=== PATIENT | female | born 1940 | race Caucasian/White ===

== ENCOUNTER 2025-01-11 05:17 | Emergency (ER) | payer MEDICARE ==
[2025-01-11] MEDS ORDERED: VALA500T5 PO (05:47)
[2025-01-11] MEDS ORDERED: DARA100V IV (05:47)
[2025-01-11] MEDS ORDERED: LENA25CA PO (05:47)
[2025-01-11] MEDS ORDERED: ALPR0.25 PO (05:47)
[2025-01-11] MEDS ORDERED: COLA100C5 PO (08:22)
[2025-01-11 10:46] VITALS: BP 137/68; TEMP 97.1; O2SAT 100
== END 2025-01-11 08:32 | disposition home or self-care (01) ==
LOC: M ED 05:17 → EDBD 05:17 → M ED 08:32
DX: K59.00 Constipation, unspecified (principal); J45.909 Unspecified asthma, uncomplicated; K40.20 Bilateral inguinal hernia, without obstruction or gangrene, not specified as recurrent; Z88.2 Allergy status to sulfonamides; Z79.899 Other long term (current) drug therapy

== ENCOUNTER 2025-01-31 13:42 | Emergency (ER) | payer MEDICARE ==
[~2025-01-31] VITALS: Ht 157.5 cm; Wt 71.8 kg
[~2025-01-31 13:42] MED LIST: ALPR0.25 PO; COLA100C5 PO; DARA100V IV; LENA25CA PO; VALA500T5 PO
[2025-01-31] MEDS ORDERED: ELIQ5TAB (13:57)
[2025-01-31] MEDS ORDERED: FURO20TA2 (13:57)
[2025-01-31] MEDS ORDERED: FLUT1BLS8 (13:57)
[2025-01-31] MEDS ORDERED: OMEP-173 (13:57)
[2025-01-31] MEDS ORDERED: GABA-1490 (13:57)
[2025-01-31] MEDS ORDERED: ATOR1TAB21 (13:57)
[2025-01-31] MEDS ORDERED: LENA20CA (13:57)
[2025-01-31] MEDS ORDERED: DILT180C95 (13:57)
[2025-01-31] MEDS ORDERED: ALEN70TA82 (13:57)
[2025-01-31 14:28] LABS: BASO % 0.3 % (0.0-1.0); EOS # 0.1 10^3/uL (0.0-0.5); EOS % 2.5 % (0.0-3.0); HEMOGLOBIN 12.3 g/dl (12.0-15.5); LYMPH # 0.7 10^3/uL (1.5-5.0); LYMPH % 20.9 % (24.0-44.0); MEAN CORPUSCULAR HEMOGLOBIN 32.9 pg (27.0-33.0); MEAN CORPUSCULAR HGB CONC 32.4 g/dl (32.0-36.5); MEAN CORPUSCULAR VOLUME 101.6 fl (80.0-96.0); MONO # 0.4 10^3/uL (0.0-0.8); MONO % 11.8 % (2.0-8.0); NEUTROPHILS # 2.1 10^3/uL (1.5-8.5); NEUTROPHILS % 63.9 % (36.0-66.0); PLATELET COUNT, AUTOMATED 233 10^3/uL (150-450); RED BLOOD COUNT 3.74 10^6/uL (4.00-5.40); WHITE BLOOD COUNT 3.2 10^3/uL (4.0-10.0)
[2025-01-31 14:48] LABS: INR 1.26; PROTHROMBIN TIME 16.1 SECONDS (12.5-14.5)
[2025-01-31 15:03] LABS: LIPASE 19 U/L (12-53)
[2025-01-31 15:06] LABS: ALBUMIN 3.1 G/DL (3.2-5.2); ALKALINE PHOSPHATASE 95 U/L (35-104); ALT/SGPT 24 U/L (7.0-40); AST/SGOT 28 U/L (<34); BILIRUBIN,DIRECT 0.1 MG/DL (<0.4); BILIRUBIN,TOTAL 0.5 MG/DL (0.3-1.2); BLOOD UREA NITROGEN 10 MG/DL (9-23); CALCIUM LEVEL 8.5 MG/DL (8.3-10.6); CARBON DIOXIDE LEVEL 34 MMOL/L (20-31); CHLORIDE LEVEL 102 MMOL/L (98-107); CK-MB VALUE MASS 5.2 NG/ML (<3.6); CREATININE FOR GFR 0.68 MG/DL (0.55-1.30); FREE T4 1.11 NG/DL (0.89-1.76); GLOMERULAR FILTRATION RATE > 60.0 (>32); GLUCOSE, FASTING 94 MG/DL (74-106); POTASSIUM SERUM 3.3 MMOL/L (3.5-5.1); SODIUM LEVEL 141 MMOL/L (136-145); THYROID STIMULATING HORMONE 1.594 uIU/ML (0.55-4.78)
[2025-01-31 15:09] LABS: CPK CREATINE PHOSPHOKINASE 95 U/L (34-145); MB/CK RELATIVE INDEX 5.47 (< OR =4)
[2025-01-31] MEDS: ACETAMINOPHEN 325 MG TAB PO ONE (15:29)
[2025-01-31 15:51] LABS: CK-MB VALUE MASS 6.3 NG/ML (<3.6)
[2025-01-31 16:09] LABS: MB/CK RELATIVE INDEX 6.63 (< OR =4)
[2025-01-31] MEDS: METOCLOPRAMIDE INJ 10MG/2ML VIAL IV ONE (16:50)
[2025-01-31 17:15] VITALS: BP 110/55; TEMP 98; O2SAT 98
== END 2025-01-31 17:45 | disposition home or self-care (01) ==
LOC: M ED 13:42
DX: R07.9 Chest pain, unspecified (principal); R51.9 Headache, unspecified; I10 Essential (primary) hypertension; Z88.2 Allergy status to sulfonamides; Z95.0 Presence of cardiac pacemaker; Z79.899 Other long term (current) drug therapy; Z79.01 Long term (current) use of anticoagulants; Z79.02 Long term (current) use of antithrombotics/antiplatelets

== ENCOUNTER 2025-03-02 08:45 | Emergency (ER) | payer MEDICARE ==
[~2025-03-02] VITALS: Ht 160 cm; Wt 68.4 kg
[~2025-03-02 08:45] MED LIST changes: +ALBU1.25 NEB; +ALEN70TA82; +ALPH600C PO; +ATOR1TAB21; +B-122500 PO; +CALC500C16 PO; +DEXA4TA PO; +DILT180C95; +ELIQ5TAB; +FLUT1BLS8; +FURO20TA2; +GABA-1490; +LENA20CA; +LISI10TA24; +OMEP-173; +PRES10CA2 PO; +PROBCAP14 PO; +REVL20CA PO; +THIA50TA4 PO
[2025-03-02 10:38] LABS: BASO % 0.2 % (0.0-1.0); EOS # 0.2 10^3/uL (0.0-0.5); EOS % 2.8 % (0.0-3.0); HEMATOCRIT 31.3 % (36.0-47.0); HEMOGLOBIN 10.3 g/dl (12.0-15.5); LYMPH # 0.5 10^3/uL (1.5-5.0); LYMPH % 9.3 % (24.0-44.0); MEAN CORPUSCULAR HEMOGLOBIN 34.1 pg (27.0-33.0); MEAN CORPUSCULAR HGB CONC 32.9 g/dl (32.0-36.5); MEAN CORPUSCULAR VOLUME 103.6 fl (80.0-96.0); MONO # 0.6 10^3/uL (0.0-0.8); MONO % 9.5 % (2.0-8.0); NEUTROPHILS # 4.5 10^3/uL (1.5-8.5); NEUTROPHILS % 77.3 % (36.0-66.0); PLATELET COUNT, AUTOMATED 150 10^3/uL (150-450); RED BLOOD COUNT 3.02 10^6/uL (4.00-5.40); WHITE BLOOD COUNT 5.8 10^3/uL (4.0-10.0)
[2025-03-02 10:43] LABS: ERYTHROCYTE SEDIMENTATION RATE 40 mm/hr (0-30)
[2025-03-02 11:02] LABS: C REACTIVE PROTEIN QUANTITATIV 7.88 MG/DL (<1.0)
[2025-03-02 11:03] LABS: CALCIUM LEVEL 7.5 MG/DL (8.3-10.6); CREATININE FOR GFR 0.64 MG/DL (0.55-1.30); GLOMERULAR FILTRATION RATE 88.2 (>32); POTASSIUM SERUM 3.5 MMOL/L (3.5-5.1)
[2025-03-02] MEDS ORDERED: CLOP75TA99 PO (12:22)
[2025-03-02] MEDS ORDERED: OXYC1TAB23 PO (12:22)
[2025-03-02] MEDS ORDERED: CLIN-250 PO (12:56)
[2025-03-02 13:00] VITALS: BP 107/55; TEMP 98.8; O2SAT 99
== END 2025-03-02 13:09 | disposition home or self-care (01) ==
LOC: M ED 08:45
DX: L03.116 Cellulitis of left lower limb (principal); I10 Essential (primary) hypertension; E78.5 Hyperlipidemia, unspecified; J44.9 Chronic obstructive pulmonary disease, unspecified; Z95.0 Presence of cardiac pacemaker; Z79.01 Long term (current) use of anticoagulants; Z88.2 Allergy status to sulfonamides; Z79.52 Long term (current) use of systemic steroids; Z79.02 Long term (current) use of antithrombotics/antiplatelets; Z79.2 Long term (current) use of antibiotics; Z79.899 Other long term (current) drug therapy

== ENCOUNTER → 2025-05-05 | Outpatient (CLI) | payer MEDICARE ==
[~2025-05-05] MED LIST changes: -ALPH600C PO; +ALPH600C2 PO; +CLIN-250 PO; +CLOP75TA99 PO; +OXYC1TAB23 PO; +REVL15CA PO
== END ==
LOC: M PLARAD 09:55
PROVIDERS: ATTEND Specialist
DX: C90.20 Extramedullary plasmacytoma not having achieved remission (principal)
CPT/HCPCS: 78815; A9552

== ENCOUNTER 2025-05-19 07:23 | Emergency (ER) | payer MEDICARE ==
[~2025-05-19] VITALS: Ht 160 cm; Wt 68.0 kg
[2025-05-19] MEDS: PERCOCET 5MG/325MG TAB PO ONE (08:13)
[2025-05-19 10:45] VITALS: O2SAT 99
[2025-05-19 10:46] VITALS: BP 107/57; TEMP 97.1
[2025-05-19] MEDS ORDERED: MEDR4PAK PO (10:48)
[2025-05-19] MEDS: OXYCODONE/APAP 5MG/325MG(HOME DOSE PACK) PO ONE (11:13)
== END 2025-05-19 11:18 | disposition home or self-care (01) ==
LOC: M ED 07:23
DX: M25.541 Pain in joints of right hand (principal); M25.542 Pain in joints of left hand; Z88.2 Allergy status to sulfonamides; Z79.899 Other long term (current) drug therapy; Z79.891 Long term (current) use of opiate analgesic; Z79.01 Long term (current) use of anticoagulants

== ENCOUNTER → 2025-05-23 | Outpatient (CLI) | payer MEDICARE ==
[~2025-05-23] MED LIST changes: +MEDR4PAK PO
== END ==
LOC: M RAD 13:10
PROVIDERS: ATTEND Internal Medicine Hematology & Oncology
DX: C90.30 Solitary plasmacytoma not having achieved remission (principal); M79.89 Other specified soft tissue disorders

== ENCOUNTER 2025-07-31 06:49 | Emergency (ER) | payer MEDICARE ==
[~2025-07-31] VITALS: Ht 165.1 cm; Wt 69.3 kg
[~2025-07-31 06:49] MED LIST changes: +ELIQ5TAB PO; +ONDA-282 PO
[2025-07-31 07:37] LABS: VENOUS BASE EXCESS 4.3 (-2.0-2.0); VENOUS HCO3 31.3 MMOL/L (23.0-27.0); VENOUS O2 SATURATION 50.6 % (60.0-80.0); VENOUS PARTIAL PRESSURE CO2 57.8 mmHg (38.0-50.0); VENOUS PARTIAL PRESSURE O2 30.3 mmHg (30.0-50.0); VENOUS PH 7.351 UNITS (7.330-7.430); VENOUS STANDARD HCO3 27.2 MMOL/L; VENOUS TOTAL CO2 33.0 MMOL/L (24.0-28.0)
[2025-07-31 07:44] LABS: BASO # 0.0 10^3/uL (0.0-0.2); BASO % 0.0 % (0.0-1.0); EOS # 0.1 10^3/uL (0.0-0.5); EOS % 3.4 % (0.0-3.0); LYMPH # 0.5 10^3/uL (1.5-5.0); LYMPH % 18.0 % (24.0-44.0); MONO # 0.7 10^3/uL (0.0-0.8); MONO % 26.3 % (2.0-8.0); NEUTROPHILS # 1.4 10^3/uL (1.5-8.5); NEUTROPHILS % 51.9 % (36.0-66.0); PLATELET COUNT, AUTOMATED 226 10^3/uL (150-450)
[2025-07-31 08:08] LABS: CK-MB VALUE MASS 2.2 NG/ML (<3.6)
[2025-07-31 08:09] LABS: CPK CREATINE PHOSPHOKINASE 38.0 U/L (34-145); MB/CK RELATIVE INDEX 5.78 (< OR =4)
[2025-07-31 08:10] LABS: ALT/SGPT 26.0 U/L (7.0-40); AST/SGOT 18.0 U/L (<34); CALCIUM LEVEL 8.8 MG/DL (8.3-10.6); CARBON DIOXIDE LEVEL 31.0 MMOL/L (20-31); CHLORIDE LEVEL 102.0 MMOL/L (98-107); CREATININE FOR GFR 0.63 MG/DL (0.55-1.30); GLOMERULAR FILTRATION RATE 88.5 (>32); POTASSIUM SERUM 3.7 MMOL/L (3.5-5.1); SODIUM LEVEL 134.0 MMOL/L (136-145)
[2025-07-31 08:16] LABS: INR 1.01
[2025-07-31] MEDS: IPRATROPIUM 0.5 MG/ALBUTEROL 2.5 MG INH SOL UD 3 ML NEB ONE (08:50)
[2025-07-31 09:10] VITALS: BP 145/65
[2025-07-31 09:12] LABS: CK-MB VALUE MASS 3.4 NG/ML (<3.6); CPK CREATINE PHOSPHOKINASE 36.0 U/L (34-145); MB/CK RELATIVE INDEX 9.44 (< OR =4)
[2025-07-31 09:38] VITALS: O2SAT 98
[2025-07-31 10:10] VITALS: O2SAT 100
[2025-07-31 10:24] VITALS: BP 145/65
[2025-07-31 10:38] VITALS: TEMP 98
== END 2025-07-31 10:39 | disposition home or self-care (01) ==
LOC: M ED 06:49 → EDBD 06:49 → M ED 10:39
DX: R06.02 Shortness of breath (principal); R03.0 Elevated blood-pressure reading, without diagnosis of hypertension; J44.9 Chronic obstructive pulmonary disease, unspecified; E78.5 Hyperlipidemia, unspecified; Z86.711 Personal history of pulmonary embolism; Z95.0 Presence of cardiac pacemaker; Z88.2 Allergy status to sulfonamides; Z79.52 Long term (current) use of systemic steroids; Z79.01 Long term (current) use of anticoagulants; Z79.02 Long term (current) use of antithrombotics/antiplatelets; Z79.899 Other long term (current) drug therapy

== ENCOUNTER 2025-10-05 11:42 | Inpatient (IN) | payer MEDICARE ==
[~2025-10-05] VITALS: Ht 157.5 cm; Wt 63.7 kg
[~2025-10-05 11:42] MED LIST changes: -ALEN70TA82; +ALEN70TA82 PO; -ATOR1TAB21; +ATOR1TAB21 PO; +CEFU1TAB22 PO; +DARA100V SC; -DILT180C95; +DILT180C95 PO; -FLUT1BLS8; +FLUT1BLS8 INH; +FURO20TA2 PO; -GABA-1490; +GABA-1490 PO; -LISI10TA24; +LISI10TA24 PO; -OMEP-173; +OMEP-173 PO
[2025-10-05 12:28] LABS: BASO # 0.0 10^3/uL (0.0-0.2); BASO % 0.0 % (0.0-1.0); EOS # 0.0 10^3/uL (0.0-0.5); EOS % 0.0 % (0.0-3.0); LYMPH # 0.3 10^3/uL (1.5-5.0); LYMPH % 6.0 % (24.0-44.0); MONO # 1.0 10^3/uL (0.0-0.8); MONO % 19.0 % (2.0-8.0); NEUTROPHILS # 3.7 10^3/uL (1.5-8.5); NEUTROPHILS % 73.0 % (36.0-66.0); PLATELET COUNT, AUTOMATED 224 10^3/uL (150-450)
[2025-10-05] MEDS: ACETAMINOPHEN 325 MG TAB PO ONE (12:39)
[2025-10-05] MEDS: ALBUTEROL SULFATE 2.5 MG/0.5 ML INH CONCENTRATE NEB SOLN INH PRN (12:42)
[2025-10-05 12:56] LABS: ALT/SGPT 25.0 U/L (7.0-40); AST/SGOT 23.0 U/L (<34); CALCIUM LEVEL 8.8 MG/DL (8.3-10.6); CARBON DIOXIDE LEVEL 36.0 MMOL/L (20-31); CHLORIDE LEVEL 93.0 MMOL/L (98-107); CREATININE FOR GFR 0.65 MG/DL (0.55-1.30); GLOMERULAR FILTRATION RATE 87.3 (>32); POTASSIUM SERUM 3.3 MMOL/L (3.5-5.1); SODIUM LEVEL 137.0 MMOL/L (136-145)
[2025-10-05 12:59] LABS: THYROXINE (T4) 7.6 UG/DL (4.5-10.9)
[2025-10-05 13:21] LABS: MAGNESIUM LEVEL 1.7 MG/DL (1.8-2.4)
[2025-10-05] MEDS: NS 500 ML IV ONE (15:33)
[2025-10-05] MEDS: MAG SULF 1GM/100ML (MAG RUN) 1 GM in IV 1 EA IV ONE (15:33)
[2025-10-05] MEDS: POTASSIUM CHLORIDE 10MEQ SR TABLET PO ONE (15:34)
[2025-10-05] MEDS: cefTRIAXone SOD 2 GM in DEXTROSE 5% (D5W) ADV/MINI-BAG 50 ML IV SCH (17:48)
[2025-10-05] MEDS: COMBIVENT RESPIMAT 100-20 MCG INHALER 4 GM INH SCH (18:03)
[2025-10-05] MEDS ORDERED: ELIQ5TAB PO (20:41)
[2025-10-05] MEDS ORDERED: GABA-1490 PO (20:56)
[2025-10-05] MEDS ORDERED: PRED10TA2 PO (20:56)
[2025-10-05] MEDS ORDERED: DELS30LI8 PO (20:58)
[2025-10-05] MEDS ORDERED: SENN1TAB85 PO (20:58)
[2025-10-05] MEDS ORDERED: HOME MED LIST COMPLETE! XX SCH (21:00)
[2025-10-05] MEDS: AZITHROMYCIN 250 MG TABLET PO SCH (21:04)
[2025-10-05] MEDS: DOCUSATE SODIUM 100 MG CAPSULE PO SCH (21:04)
[2025-10-05] MEDS: APIXABAN 5 MG TAB PO SCH (21:28)
[2025-10-05] MEDS: PANTOPRAZOLE 40MG TAB PO SCH (21:28)
[2025-10-05] MEDS ORDERED: SENNOSIDES/DOCUSATE SODIUM 8.6 MG/50MG TAB PO PRN (21:30)
[2025-10-05] MEDS ORDERED: guaiFENesin DM LIQ 10ML UD PO PRN (22:15)
[2025-10-05] MEDS: ATORVASTATIN 20 MG TAB PO SCH (22:33)
[2025-10-05] MEDS: GABAPENTIN 300 MG CAP PO SCH (22:33)
[2025-10-06] MEDS ORDERED: HYDR-161 PO (02:23)
[2025-10-06 07:19] LABS: BASO # 0.0 10^3/uL (0.0-0.2); BASO % 0.3 % (0.0-1.0); EOS # 0.0 10^3/uL (0.0-0.5); EOS % 0.3 % (0.0-3.0); LYMPH # 0.3 10^3/uL (1.5-5.0); LYMPH % 8.7 % (24.0-44.0); MONO # 0.6 10^3/uL (0.0-0.8); MONO % 16.9 % (2.0-8.0); NEUTROPHILS # 2.5 10^3/uL (1.5-8.5); NEUTROPHILS % 72.9 % (36.0-66.0); PLATELET COUNT, AUTOMATED 211 10^3/uL (150-450)
[2025-10-06] MEDS: ADVAIR HFA 230/21 MCG INHALER INH SCH (07:30)
[2025-10-06 07:43] LABS: CALCIUM LEVEL 8.1 MG/DL (8.3-10.6); CARBON DIOXIDE LEVEL 38.0 MMOL/L (20-31); CHLORIDE LEVEL 96.0 MMOL/L (98-107); CREATININE FOR GFR 0.67 MG/DL (0.55-1.30); GLOMERULAR FILTRATION RATE 86.7 (>32); POTASSIUM SERUM 3.3 MMOL/L (3.5-5.1); SODIUM LEVEL 142.0 MMOL/L (136-145)
[2025-10-06] MEDS: CYANOCOBALAMIN 500 MCG TAB PO SCH (08:22)
[2025-10-06] MEDS: dilTIAZem 180 MG **CD** CAPSULE PO SCH (08:25)
[2025-10-06] MEDS: GABAPENTIN 300 MG CAP PO SCH (08:25)
[2025-10-06] MEDS: OMEPRAZOLE 20MG CAP PO SCH (08:26)
[2025-10-06] MEDS: CALCIUM CARBONATE 500 MG CHEW U/D PO SCH (08:26)
[2025-10-06] MEDS: predniSONE 10 MG TAB PO SCH (08:26)
[2025-10-06] MEDS: MULTIVITAMINS/MINERALS THERAP 1 TAB PO SCH (11:57)
[2025-10-06 15:40] VITALS: BP 114/56; TEMP 98.7; O2SAT 95
[2025-10-06] MEDS: POTASSIUM CHLORIDE 10MEQ SR TABLET PO ONE (16:17)
[2025-10-06 20:00] VITALS: BP 111/56; TEMP 99.6; O2SAT 95
[2025-10-06] MEDS: DEXTROMETHORPHAN 60 MG/10 ML SUSP 90 ML BTL PO PRN (21:52)
[2025-10-07 05:16] VITALS: BP 119/58; TEMP 102.7; O2SAT 94
[2025-10-07] MEDS: ACETAMINOPHEN 325 MG TAB PO PRN (05:39)
[2025-10-07 07:35] LABS: BASO # 0.0 10^3/uL (0.0-0.2); BASO % 0.0 % (0.0-1.0); EOS # 0.0 10^3/uL (0.0-0.5); EOS % 0.0 % (0.0-3.0); LYMPH # 0.3 10^3/uL (1.5-5.0); LYMPH % 8.1 % (24.0-44.0); MONO # 0.5 10^3/uL (0.0-0.8); MONO % 12.9 % (2.0-8.0); NEUTROPHILS # 2.8 10^3/uL (1.5-8.5); NEUTROPHILS % 77.9 % (36.0-66.0); PLATELET COUNT, AUTOMATED 215 10^3/uL (150-450)
[2025-10-07 08:11] LABS: CALCIUM LEVEL 8.0 MG/DL (8.3-10.6); CARBON DIOXIDE LEVEL 34.0 MMOL/L (20-31); CHLORIDE LEVEL 97.0 MMOL/L (98-107); CREATININE FOR GFR 0.66 MG/DL (0.55-1.30); GLOMERULAR FILTRATION RATE 87.0 (>32); POTASSIUM SERUM 4.1 MMOL/L (3.5-5.1); SODIUM LEVEL 138.0 MMOL/L (136-145)
[2025-10-07 12:15] VITALS: BP 111/52; TEMP 100.1; O2SAT 89
[2025-10-07 16:19] VITALS: TEMP 100
[2025-10-07 19:56] VITALS: BP 113/58; TEMP 98; O2SAT 95
[2025-10-07 20:31] VITALS: O2SAT 90
[2025-10-08] VITALS (14 sets, daily range): BP systolic 106–148; BP diastolic 53–67; TEMP 98–101; O2SAT 82–96
[2025-10-08 06:41] LABS: PLATELET COUNT, AUTOMATED 223 10^3/uL (150-450)
[2025-10-08 07:13] LABS: CALCIUM LEVEL 8.0 MG/DL (8.3-10.6); CARBON DIOXIDE LEVEL 36.0 MMOL/L (20-31); CHLORIDE LEVEL 101.0 MMOL/L (98-107); CREATININE FOR GFR 0.6 MG/DL (0.55-1.30); GLOMERULAR FILTRATION RATE 89.0 (>32); POTASSIUM SERUM 4.7 MMOL/L (3.5-5.1); SODIUM LEVEL 142.0 MMOL/L (136-145)
[2025-10-08 08:00] LABS: LYMPHOCYTES 13 % (16-44); MONOCYTES 6 % (0-5); NEUTROPHILS 79 % (28-66)
[2025-10-08 08:03] LABS: PLATELET ESTIMATE NORMAL (NORMAL)
[2025-10-08] MEDS: cefTRIAXone SOD 1 GM in DEXTROSE 5% (D5W) ADV/MINI-BAG 50 ML IV SCH (17:39)
[2025-10-08] MEDS: REMDESIVIR 200 MG in NS 250 ML IV ONE (20:03)
[2025-10-09] VITALS (19 sets, daily range): BP systolic 96–152; BP diastolic 51–85; TEMP 97.2–100.1; O2SAT 86–96
[2025-10-09] MEDS: FUROSEMIDE 40 MG/4 ML VIAL IV ONE ×2 (08:28→12:47)
[2025-10-09 09:32] LABS: BASO # 0.0 10^3/uL (0.0-0.2); BASO % 0.2 % (0.0-1.0); EOS # 0.0 10^3/uL (0.0-0.5); EOS % 0.3 % (0.0-3.0); LYMPH # 0.5 10^3/uL (1.5-5.0); LYMPH % 7.5 % (24.0-44.0); MONO # 0.2 10^3/uL (0.0-0.8); MONO % 3.8 % (2.0-8.0); NEUTROPHILS # 5.5 10^3/uL (1.5-8.5); NEUTROPHILS % 87.2 % (36.0-66.0); PLATELET COUNT, AUTOMATED 275 10^3/uL (150-450)
[2025-10-09 10:01] LABS: ABG BASE EXCESS 9.2 (-2.0-2.0); ABG HCO3 32.6 MMOL/L (22.0-26.0); ABG O2 SATURATION 94.5 % (95.0-99.0); ABG PARTIAL PRESSURE CO2 39.5 mmHg (35.0-45.0); ABG PARTIAL PRESSURE O2 68.8 mmHg (75.0-100.0); ABG STANDARD HCO3 32.9 MMOL/L. (22.0-26.0); ABG TOTAL CO2 33.8 MMOL/L (23.0-31.0); ABG pH (ARTERIAL) 7.534 UNITS (7.350-7.450)
[2025-10-09 10:09] LABS: CALCIUM LEVEL 8.8 MG/DL (8.3-10.6); CARBON DIOXIDE LEVEL 34.0 MMOL/L (20-31); CHLORIDE LEVEL 96.0 MMOL/L (98-107); CREATININE FOR GFR 0.61 MG/DL (0.55-1.30); GLOMERULAR FILTRATION RATE 88.7 (>32); POTASSIUM SERUM 3.7 MMOL/L (3.5-5.1); SODIUM LEVEL 140.0 MMOL/L (136-145)
[2025-10-09] MEDS: TIOTROPIUM BROM 2.5MCG/ACTUATION 4GM INH INH SCH (11:09)
[2025-10-09] MEDS: ONDANSETRON 4MG ORAL DISINTEGRATING TAB PO PRN (13:58)
[2025-10-09 16:09] LABS: CALCIUM LEVEL 8.1 MG/DL (8.3-10.6); CARBON DIOXIDE LEVEL 32.0 MMOL/L (20-31); CHLORIDE LEVEL 95.0 MMOL/L (98-107); CREATININE FOR GFR 0.72 MG/DL (0.55-1.30); GLOMERULAR FILTRATION RATE 82.9 (>32); MAGNESIUM LEVEL 1.5 MG/DL (1.8-2.4); POTASSIUM SERUM 4.4 MMOL/L (3.5-5.1); SODIUM LEVEL 137.0 MMOL/L (136-145)
[2025-10-09] MEDS: MAG SULF 1GM/100ML (MAG RUN) 1 GM in IV 1 EA IV SCH (17:59)
[2025-10-09] MEDS ORDERED: REMDESIVIR 100 MG in NS 250 ML IV SCH (20:00)
[2025-10-10] VITALS (16 sets, daily range): BP systolic 101–135; BP diastolic 51–63; TEMP 97.1–98.6; O2SAT 86–97
[2025-10-10 00:05] LABS: CALCIUM LEVEL 7.9 MG/DL (8.3-10.6); CARBON DIOXIDE LEVEL 35.0 MMOL/L (20-31); CHLORIDE LEVEL 95.0 MMOL/L (98-107); CREATININE FOR GFR 0.69 MG/DL (0.55-1.30); GLOMERULAR FILTRATION RATE 86.1 (>32); MAGNESIUM LEVEL 2.4 MG/DL (1.8-2.4); POTASSIUM SERUM 4.1 MMOL/L (3.5-5.1); SODIUM LEVEL 137.0 MMOL/L (136-145)
[2025-10-10 05:38] LABS: BASO # 0.0 10^3/uL (0.0-0.2); BASO % 0.0 % (0.0-1.0); EOS # 0.0 10^3/uL (0.0-0.5); EOS % 0.0 % (0.0-3.0); LYMPH # 0.2 10^3/uL (1.5-5.0); LYMPH % 4.6 % (24.0-44.0); MONO # 0.1 10^3/uL (0.0-0.8); MONO % 1.9 % (2.0-8.0); NEUTROPHILS # 4.4 10^3/uL (1.5-8.5); NEUTROPHILS % 92.2 % (36.0-66.0); PLATELET COUNT, AUTOMATED 273 10^3/uL (150-450)
[2025-10-10 06:00] LABS: CALCIUM LEVEL 7.9 MG/DL (8.3-10.6); CARBON DIOXIDE LEVEL 35.0 MMOL/L (20-31); CHLORIDE LEVEL 95.0 MMOL/L (98-107); CREATININE FOR GFR 0.66 MG/DL (0.55-1.30); GLOMERULAR FILTRATION RATE 87.0 (>32); POTASSIUM SERUM 4.2 MMOL/L (3.5-5.1); SODIUM LEVEL 139.0 MMOL/L (136-145)
[2025-10-10 06:46] LABS: MAGNESIUM LEVEL 2.4 MG/DL (1.8-2.4)
[2025-10-10] MEDS: FUROSEMIDE 40 MG/4 ML VIAL IV SCH (10:13)
[2025-10-10] MEDS: CEFPODOXIME PROXETIL 200 MG TABLET PO SCH (17:42)
[2025-10-10 18:19] LABS: CALCIUM LEVEL 7.9 MG/DL (8.3-10.6); CARBON DIOXIDE LEVEL 35.0 MMOL/L (20-31); CHLORIDE LEVEL 92.0 MMOL/L (98-107); CREATININE FOR GFR 0.73 MG/DL (0.55-1.30); GLOMERULAR FILTRATION RATE 81.6 (>32); POTASSIUM SERUM 4.1 MMOL/L (3.5-5.1); SODIUM LEVEL 136.0 MMOL/L (136-145)
[2025-10-11] VITALS (12 sets, daily range): BP systolic 103–134; BP diastolic 52–71; TEMP 97.2–97.6; O2SAT 84–98
[2025-10-11 04:39] LABS: BASO # 0.0 10^3/uL (0.0-0.2); BASO % 0.1 % (0.0-1.0); EOS # 0.0 10^3/uL (0.0-0.5); EOS % 0.0 % (0.0-3.0); LYMPH # 0.2 10^3/uL (1.5-5.0); LYMPH % 2.8 % (24.0-44.0); MONO # 0.3 10^3/uL (0.0-0.8); MONO % 3.7 % (2.0-8.0); NEUTROPHILS # 7.0 10^3/uL (1.5-8.5); NEUTROPHILS % 92.5 % (36.0-66.0); PLATELET COUNT, AUTOMATED 321 10^3/uL (150-450)
[2025-10-11 04:58] LABS: CALCIUM LEVEL 8.4 MG/DL (8.3-10.6); CARBON DIOXIDE LEVEL 35.0 MMOL/L (20-31); CHLORIDE LEVEL 91.0 MMOL/L (98-107); CREATININE FOR GFR 0.71 MG/DL (0.55-1.30); GLOMERULAR FILTRATION RATE 84.3 (>32); MAGNESIUM LEVEL 2.1 MG/DL (1.8-2.4); POTASSIUM SERUM 3.7 MMOL/L (3.5-5.1); SODIUM LEVEL 137.0 MMOL/L (136-145)
[2025-10-11] MEDS ORDERED: MOM 30 ML SUSPENSION UDC PO PRN (07:40)
[2025-10-11] MEDS: SENNOSIDES/DOCUSATE SODIUM 8.6 MG/50MG TAB PO ONE (09:05)
[2025-10-11] MEDS: LACTULOSE 20 GM/30 ML SYRUP UDC PO ONE (09:05)
[2025-10-11] MEDS: guaiFENesin ER TABLET 600 MG TAB PO SCH (09:06)
[2025-10-11] MEDS ORDERED: LACTULOSE 20 GM/30 ML SYRUP UDC PO PRN (15:00)
[2025-10-11] MEDS: SENNA 8.6 MG TAB PO SCH (22:04)
[2025-10-12] VITALS (8 sets, daily range): BP systolic 110–124; BP diastolic 56–66; TEMP 97.6–98.7; O2SAT 90–96
[2025-10-12 05:36] LABS: BASO # 0.0 10^3/uL (0.0-0.2); BASO % 0.1 % (0.0-1.0); EOS # 0.0 10^3/uL (0.0-0.5); EOS % 0.0 % (0.0-3.0); LYMPH # 0.2 10^3/uL (1.5-5.0); LYMPH % 2.4 % (24.0-44.0); MONO # 0.3 10^3/uL (0.0-0.8); MONO % 4.1 % (2.0-8.0); NEUTROPHILS # 6.5 10^3/uL (1.5-8.5); NEUTROPHILS % 91.8 % (36.0-66.0); PLATELET COUNT, AUTOMATED 315 10^3/uL (150-450)
[2025-10-12 05:54] LABS: CALCIUM LEVEL 8.5 MG/DL (8.3-10.6); CARBON DIOXIDE LEVEL 38.0 MMOL/L (20-31); CHLORIDE LEVEL 90.0 MMOL/L (98-107); CREATININE FOR GFR 0.73 MG/DL (0.55-1.30); GLOMERULAR FILTRATION RATE 81.6 (>32); POTASSIUM SERUM 3.6 MMOL/L (3.5-5.1); SODIUM LEVEL 137.0 MMOL/L (136-145)
[2025-10-12] MEDS ORDERED: CEFPODOXIME PROXETIL 200 MG TABLET PO SCH (09:45)
[2025-10-13] VITALS (13 sets, daily range): BP systolic 102–126; BP diastolic 55–60; TEMP 97.2–98.7; O2SAT 88–96
[2025-10-14] VITALS (11 sets, daily range): BP systolic 102–129; BP diastolic 56–62; TEMP 97.3–98; O2SAT 91–100
[2025-10-14 08:27] LABS: BASO # 0.0 10^3/uL (0.0-0.2); BASO % 0.2 % (0.0-1.0); EOS # 0.0 10^3/uL (0.0-0.5); EOS % 0.0 % (0.0-3.0); LYMPH # 0.1 10^3/uL (1.5-5.0); LYMPH % 1.1 % (24.0-44.0); MONO # 0.3 10^3/uL (0.0-0.8); MONO % 2.7 % (2.0-8.0); NEUTROPHILS # 9.5 10^3/uL (1.5-8.5); NEUTROPHILS % 93.3 % (36.0-66.0); PLATELET COUNT, AUTOMATED 315 10^3/uL (150-450)
[2025-10-14 08:44] LABS: CALCIUM LEVEL 8.7 MG/DL (8.3-10.6); CARBON DIOXIDE LEVEL 40.0 MMOL/L (20-31); CHLORIDE LEVEL 88.0 MMOL/L (98-107); CREATININE FOR GFR 0.74 MG/DL (0.55-1.30); GLOMERULAR FILTRATION RATE 80.2 (>32); POTASSIUM SERUM 3.2 MMOL/L (3.5-5.1); SODIUM LEVEL 138.0 MMOL/L (136-145)
[2025-10-14] MEDS: POTASSIUM CHLORIDE 10MEQ SR TABLET PO ONE (11:27)
[2025-10-15] VITALS (17 sets, daily range): BP systolic 114–138; BP diastolic 57–63; TEMP 97.3–98.3; O2SAT 88–99
[2025-10-15 06:00] LABS: BASO # 0.0 10^3/uL (0.0-0.2); BASO % 0.1 % (0.0-1.0); EOS # 0.0 10^3/uL (0.0-0.5); EOS % 0.0 % (0.0-3.0); LYMPH # 0.1 10^3/uL (1.5-5.0); LYMPH % 0.9 % (24.0-44.0); MONO # 0.3 10^3/uL (0.0-0.8); MONO % 3.2 % (2.0-8.0); NEUTROPHILS # 9.9 10^3/uL (1.5-8.5); NEUTROPHILS % 93.5 % (36.0-66.0); PLATELET COUNT, AUTOMATED 274 10^3/uL (150-450)
[2025-10-15 06:22] LABS: CALCIUM LEVEL 8.6 MG/DL (8.3-10.6); CARBON DIOXIDE LEVEL 39.0 MMOL/L (20-31); CHLORIDE LEVEL 92.0 MMOL/L (98-107); CREATININE FOR GFR 0.88 MG/DL (0.55-1.30); GLOMERULAR FILTRATION RATE 65.2 (>32); POTASSIUM SERUM 4.1 MMOL/L (3.5-5.1); SODIUM LEVEL 140.0 MMOL/L (136-145)
[2025-10-15] MEDS: FUROSEMIDE 20 MG TAB PO SCH (12:04)
[2025-10-15] MEDS: SODIUM CHLORIDE HYPERTONIC 3% 4ML NEB SOL INH SCH (15:49)
[2025-10-16 06:15] VITALS: BP 123/58; TEMP 97.2; O2SAT 89
[2025-10-16 08:53] VITALS: BP 125/59
[2025-10-16] MEDS ORDERED: PRED10TA2 PO (11:38)
[2025-10-16] MEDS ORDERED: MUCI1TAB16 PO (11:38)
== END 2025-10-16 13:05 | disposition home or self-care (01) | DRG 177 ==
LOC: EDBD 11:42 → M ED 11:42 → M ED INP 15:21 → M MSPAV 10-06 15:42 → M ICU 10-09 09:07 → M PCU 10-11 12:16 → M MS5PR 10-15 18:25
PROVIDERS: ADMIT Internal Medicine Nephrology; ATTEND Internal Medicine
DX: U07.1 COVID-19 (principal); J96.21 Acute and chronic respiratory failure with hypoxia; J15.69 Pneumonia due to other Gram-negative bacteria; C16.9 Malignant neoplasm of stomach, unspecified; J44.0 Chronic obstructive pulmonary disease with (acute) lower respiratory infection; J96.11 Chronic respiratory failure with hypoxia; C90.30 Solitary plasmacytoma not having achieved remission; J20.8 Acute bronchitis due to other specified organisms; I10 Essential (primary) hypertension; I48.91 Unspecified atrial fibrillation; Z86.711 Personal history of pulmonary embolism; Z92.3 Personal history of irradiation; Z92.25 Personal history of immunosuppression therapy; Z95.0 Presence of cardiac pacemaker; G62.9 Polyneuropathy, unspecified; R91.8 Other nonspecific abnormal finding of lung field; Z79.01 Long term (current) use of anticoagulants; K21.9 Gastro-esophageal reflux disease without esophagitis; Z79.899 Other long term (current) drug therapy; K44.9 Diaphragmatic hernia without obstruction or gangrene